=== PATIENT | female | born 1965 | race Caucasian/White ===

== ENCOUNTER 2017-03-20 16:03 | Emergency (ER) | payer OTHER, BC ==
[2017-03-20 16:25] VITALS: BMI 28.3
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
[2017-03-20 16:44] VITALS: BP 162/91; PULSE 86; TEMP 98.2
[2017-03-20 16:51] VITALS: RESP 16; O2SAT 98
== END 2017-03-20 17:32 | disposition home or self-care (01) ==
LOC: ED 16:03
DX: M79.1 Myalgia (principal); V49.49XA Driver injured in collision with other motor vehicles in traffic accident, initial encounter; Y92.410 Unspecified street and highway as the place of occurrence of the external cause